=== PATIENT | male | born 1965 | race African-American/Black ===

== ENCOUNTER 2022-11-11 00:34 | Emergency (ER) | payer OTHER | END 2022-11-11 02:01 | LOC: NAV ERS 00:34 | DX: S62.312A Displaced fracture of base of third metacarpal bone, right hand, initial encounter for closed fracture (principal); S62.314A Displaced fracture of base of fourth metacarpal bone, right hand, initial encounter for closed fracture; S62.316A Displaced fracture of base of fifth metacarpal bone, right hand, initial encounter for closed fracture; E66.9 Obesity, unspecified; K21.9 Gastro-esophageal reflux disease without esophagitis; Z79.899 Other long term (current) drug therapy; W22.01XA Walked into wall, initial encounter ==